=== PATIENT | male | born 1955 | race Caucasian/White ===

== ENCOUNTER 2018-02-17 09:41 | Inpatient (IN) | payer OTHER ==
[2018-02-17 10:50] VITALS: BMI 27.3
--- NOTE | 2018-02-17 13:14 | HP ---
CIWA Score - CIWA Score Nausea/Vomitin Muscle Tremors: 3 Anxiety: 3 Agitation: 3 Paroxysmal Sweats: 2 Orientation: 0-Oriented Tacttile Disturbances: 2-Mild Itch/Numbness/Burn Auditory Disturbances: 2-Mild Harshness/Frighten Visual Disturbances: 1-Very Mild Sensitivity Headache: 2-Mild CIWA-Ar Total Score: 21 Admission ROS BHS - HPI Chief Complaint: I NEED TO STOP DRINKING ALCOHOL Allergies/Adverse Reactions: Allergies Allergy/AdvReac Type Severity Reaction Status Date / Time No Known Allergies Allergy Verified 02/17/18 11:45 History of Present Illness: THIS 62 YEARS OLD MALE WITH ALCOHOL DEPENDENCE,SEEKING DETOX,WITHDRAWAL SYMPTOM, LAST DETOX 2016 [facility] SEIZURE 02/09 [facility]OPE HEPATITIS TREATED NICOTINE DEPENDENCE BIPOLAR,PTSD LONGEST PERIOD SOBRIETY 3 YEARS Exam Limitations: No Limitations - Ebola screening Have you traveled outside of the country in the last 21 days: No Have you had contact with anyone from an Ebola affected area: No Have you been sick,other than usual withdrawal symptoms: No Do you have a fever: No - Review of Systems Constitutional: Loss of Appetite, Malaise, Night Sweats, Changes in sleep, Weakness EENT: reports: Nose Congestion Respiratory: reports: No Symptoms reported Cardiac: reports: No Symptoms Reported GI: reports: Diarrhea, Nausea, Vomiting, Indigestion : reports: No Symptoms Reported Musculoskeletal: reports: Back Pain, Muscle Pain Integumentary: reports: Dryness, Other (DEHYDRATION) Neuro: reports: Headache, Tremors Endocrine: reports: No Symptoms Reported Hematology: reports: No Symptoms Reported Psychiatric: reports: No Sypmtoms Reported, Judgement Intact, Mood/Affect Appropiate, Anxious (BIPOLAR DISORDER), Depressed Patient History - Patient Medical History Hx Anemia: No Hx Asthma: No Hx Chronic Obstructive Pulmonary Disease (COPD): No Hx Cancer: No Hx Cardiac Disorders: No Hx Congestive Heart Failure: No Hx Hypertension: No Hx Hypercholesterolemia: No Hx Pacemaker: No HX Cerebrovascular Accident: No Hx Seizures: No Hx Dementia: No Hx Diabetes: No Hx Gastrointestinal Disorders: No Hx Liver Disease: No Hx Genitourinary Disorders: Yes (LFT NEPHRECTOMY FOR CANCER IN 2011 AT [place]) Hx Sexually Transmitted Disorders: No Hx Renal Disease (ESRD): No Hx Thyroid Disease: No Hx Human Immunodeficiency Virus (HIV): No (LAST 12/12 NEGATIVE) Hx Hepatitis C: Yes (TREATED) Hx Depression: Yes (ANXIETY,DEPRESSION) Hx Suicide Attempt: No Hx Bipolar Disorder: Yes Hx Schizophrenia: No Other Medical History: NO SUICIDAL,NO HOMICIDAL - Patient Surgical History Past Surgical History: Yes Hx Neurologic Surgery: No Hx Cataract Extraction: No Hx Cardiac Surgery: No Hx Lung Surgery: No Hx Breast Surgery: No Hx Breast Biopsy: No Hx Abdominal Surgery: No Hx Appendectomy: No Hx Cholecystectomy: No Hx Genitourinary Surgery: No Hx Section: No Hx Orthopedic Surgery: No Other Surgical History: left nephrectomy (ca) in 2011 Anesthesia Reaction: No - PPD History Previous Implant?: Yes Documented Results: Negative w/o proof Implanted On Prior R Admission?: No PPD to be Administered?: Yes - Smoking Cessation Smoking history: Current every day smoker Have you smoked in the past 12 months: Yes Hx Chewing Tobacco Use: No Initiated information on smoking cessation: Yes 'Breaking Loose' booklet given: 02/17/18 - Substance & Tx. History Hx Alcohol Use: Yes Hx Substance Use: No Substance Use Type: Alcohol Hx Substance Use Treatment: Yes (2017 IN [place]) - Substances Abused Alcohol-vodka/beer Route: Oral Frequency: Daily Amount used: 1 qt./1-6 pk. Age of first use: 9 Date of Last Use: 02/17/18 Family Disease History - Family Disease History Family Disease History: Other: Father (ALCOHOL,), Mother (ALCOHOL, ), Brother (ALCOHOL,NOW SOBER) Admission Physical Exam BHS - Vital Signs Vital Signs: Vital Signs - 24 hr 02/17/18 10:44 Temperature 97 F L Pulse Rate 88 Respiratory 20 Rate Blood Pressure 128/53 - Physical General Appearance: Yes: Moderate Distress, Tremorous, Irritable, Sweating, Anxious HEENTM: Yes: Within Normal Limits, Normal ENT Inspection, Normocephalic, WALTER, Pharynx Normal Respiratory: Yes: Lungs Clear, Normal Breath Sounds, No Respiratory Distress Neck: Yes: Within Normal Limits, Supple, Trachea in good position Breast: Yes: Within Normal Limits Cardiology: Yes: Within Normal Limits, Regular Rhythm, Regular Rate, S1, S2 Abdominal: Yes: Normal Bowel Sounds, Non Tender, Flat, Soft, Organomegaly, Surgical Scar (SURGOCAL SCAR LEFT LOWER ABDOMEN) Genitourinary: Yes: Within Normal Limits Back: Yes: Normal Inspection, Muscle Spasm Musculoskeletal: Yes: full range of Motion, Back pain, Muscle Pain Extremities: Yes: Tremors, Other (DEFORMITY OF RIGHT 5TH FINGER) Neurological: Yes: manager of patient II-XII NML intact, Fully Oriented, Alert, Motor Strength 5/5 Integumentary: Yes: Dry Lymphatic: Yes: Within Normal Limits - Diagnostic (1) Alcohol dependence with uncomplicated withdrawal Current Visit: Yes Status: Acute (2) Alcohol dependence with uncomplicated intoxication Current Visit: Yes Status: Acute (3) Alcohol related seizure Current Visit: Yes Status: Acute (4) Syncope Current Visit: Yes Status: Acute (5) Nicotine dependence Current Visit: Yes Status: Acute Qualifiers: Nicotine product type: cigarettes Substance use status: in withdrawal Qualified Code(s): F17.213 - Nicotine dependence, cigarettes, with withdrawal (6) History of nephrectomy, unilateral Current Visit: Yes Status: Chronic (7) Bipolar 1 disorder Current Visit: Yes Status: Acute (8) PTSD (post-traumatic stress disorder) Current Visit: Yes Status: Chronic Comment: As per self-report.On medications. Cleared for Admission [facility] - Detox or Rehab [facility] Level of Care: Medically Managed Detox Regimen/Protocol: Librium [facility] Breath Alcohol Content Breath Alcohol Content: 0.214 Urine Drug Screen - Results Drug Screen Negative: Yes
[2018-02-17] MEDS ORDERED: MAGNESIUM HYDROX 2400MG/30ML ORAL SUSPENSION 30 ML CUP PO PRN (13:28)
[2018-02-17] MEDS ORDERED: IBUPROFEN 400 MG TABLET (FP) PO PRN (13:28)
[2018-02-17] MEDS ORDERED: hydrOXYzine PAMOATE 50 MG CAPSULE (FP) PO PRN (13:28)
[2018-02-17] MEDS ORDERED: chlordiazePOXIDE HCL 25 MG CAPSULE PO PRN (13:28)
[2018-02-17] MEDS ORDERED: MAG HYDROX/AL HYDROX/SIMETH 30 ML UNIT-DOSE CUP PO PRN (13:28)
[2018-02-17] MEDS ORDERED: P-EPHED 60MG/TRIPROLIDI 2.5MG TABLET PO PRN (13:28)
[2018-02-17] MEDS ORDERED: MENTHOL/PHENOL 1 EACH UD MM PRN (13:28)
[2018-02-17] MEDS ORDERED: ACETAMINOPHEN 325 MG TABLET (FP) PO PRN (13:28)
[2018-02-17] MEDS ORDERED: MAGNESIUM CITRATE 300 ML BOTTLE PO PRN (13:28)
[2018-02-17] MEDS ORDERED: guaiFENesin/D-METHORPHAN HB 10 ML UNIT-DOSE CUPS PO PRN (13:28)
[2018-02-17] MEDS ORDERED: LOPERAMIDE HCL 2 MG CAPSULE PO PRN (13:28)
[2018-02-17] MEDS ORDERED: chlordiazePOXIDE HCL 25 MG CAPSULE PO ONE (14:15)
--- NOTE | 2018-02-17 16:39 | CONSULT ---
[facility] Psychiatric Consult - Data Date of interview: 02/17/18 Admission source: [facility] Identifying data: First admission to [facility] for this 63 y/o male from [place] ancestry seeking detox treatrment on for alcohol dependence.Patient is single without children,domiciled,currently unemployed and supported on SSI benefits. Substance Abuse History: Smoking history: Current every day smoker. Have you smoked in the past 12 months: Yes. Hx Chewing Tobacco Use: No. Initiated information on smoking cessation: Yes. 'Breaking Loose' booklet given: . - Substance & Tx. History. Hx Alcohol Use: Yes. Hx Substance Use: No. Substance Use Type: Alcohol. Hx Substance Use Treatment: Yes (2017 IN [place]). - Substances Abused. Alcohol-vodka/beer. Route: Oral. Frequency : Daily. Amount used: 1 qt./1-6 pk. Age of first use: 9. Date of Last Use: 02/17/18 Medical History: Antecedent of hepatitis C (treated) and left nephrectomy ( cancer),withdrawal-related seizures and a history of syncope. Psychiatric History: Prescribed seroquel 200 mg/hs + zoloft 200 mg/day + buspar 30 mg/day.No reported history of psychiatric hospitalizations but OPD care at the [facility] in [place] (self-report) until patient dropped out two months ago.Mr Vazquez endorses the diagnoses of Bipolar Disorder and PTSD.Denies history of suicide attempts. Physical/Sexual Abuse/Trauma History: Patient denies history of abuse.No history. Additional Comment: Drug Screen is negative. Mental Status Exam - Mental Status Exam Alert and Oriented to: Time, Place, Person Cognitive Function: Good Patient Appearance: Well Groomed (flushed facial features) Mood: Apprehensive (mildly), Hopeful (jovial mood) Affect: Appropriate, Normal Range Patient Behavior: Fatigued, Appropriate (friendly), Cooperative Speech Pattern: Clear, Appropriate Voice Loudness: Normal Thought Process: Intact, Goal Oriented Thought Disorder: Not Present Hallucinations: Denies Suicidal Ideation: Denies Homicidal Ideation: Denies Insight/Judgement: Poor Sleep: Poorly, Difficulty falling asleep Appetite: Good Muscle strength/Tone: Normal Gait/Station: Normal Psychiatric Findings - Problem List ([place] 1, 2,3) (1) Alcohol dependence with uncomplicated withdrawal Current Visit: Yes Status: Acute (2) Nicotine dependence Current Visit: Yes Status: Acute Qualifiers: Nicotine product type: cigarettes Substance use status: in withdrawal Qualified Code(s): F17.213 - Nicotine dependence, cigarettes, with withdrawal (3) Bipolar disorder Current Visit: Yes Status: Chronic Comment: As per self-report.On medications. (4) PTSD (post-traumatic stress disorder) Current Visit: Yes Status: Chronic Comment: As per self-report.On medications. (5) Insomnia Current Visit: Yes Status: Acute - Initial Treatment Plan Initial Treatment Plan: Psychoeducation.Orientation to the unit.Support.Detoxification in progress.Medications : zoloft 100 mg po daily + seroquel 100 mg po hs (reduced as a precaution against oversedation) + buspar 15 mg po bid.Side effects/benefits of these medications are discussed with the patient.Mr Vazquez has expressed his agrement to this plan of care.Observation. Medications are confirmed by pharmacy claims of 02/08/18 @ [facility].NO scripts needed at discharge (patient indicates that he has adequate supply of medications at home).
[2018-02-17 16:49] LABS: URINE APPEARANCE CLEAR; URINE BILIRUBIN NEGATIVE (<2.0 mg/dL); URINE BLOOD NEGATIVE (NEGATIVE); URINE COLOR DKYELLOW; URINE GLUCOSE (UA) NEGATIVE (NEGATIVE); URINE KETONE NEGATIVE (NEGATIVE); URINE LEUK ESTERASE NEGATIVE (NEGATIVE); URINE NITRITE NEGATIVE (NEGATIVE); URINE PROTEIN NEGATIVE (NEGATIVE); URINE UROBILINOGEN 4.0 E.U/dl mg/dL (0.2-1.0)
[2018-02-17] MEDS: chlordiazePOXIDE HCL 25 MG CAPSULE PO SCH ×2 (17:16→22:17)
[2018-02-17] MEDS: QUEtiapine FUMARATE 100 MG TABLET (FP) PO SCH (22:17)
[2018-02-17] MEDS: MELATONIN 5 MG TABLETS PO SCH (22:17)
[2018-02-17] MEDS: THIAMINE HCL 100 MG TABLET (FP) PO SCH (22:17)
[2018-02-18] MEDS: chlordiazePOXIDE HCL 25 MG CAPSULE PO SCH ×4 (06:18→22:13)
[2018-02-18 09:59] LABS: HEMATOCRIT 45.7 % (35.4-49); HEMOGLOBIN 15.3 GM/dL (11.7-16.9); MCHC 33.4 g/dl (32.0-35.9); MEAN CELL VOLUME 92.8 fl (80-96); MEAN PLT VOLUME 9.7 fl (7.5-11.1); PLATELET COUNT 193 K/MM3 (134-434); RBC 4.92 M/mm3 (4.00-5.60); RDW 16.7 % (11.9-15.9); WHITE BLOOD COUNT 6.3 K/mm3 (4.0-10.0)
[2018-02-18 10:23] LABS: CHLORIDE 110 mmol/L (98-107); POTASSIUM 4.2 mmol/L (3.5-5.1); SODIUM 143 mmol/L (136-145)
[2018-02-18] MEDS: PRENATAL VITAMINS W/ FOLIC ACID TABLET (FP) PO SCH (10:39)
[2018-02-18] MEDS: SERTRALINE HCL 50 MG TABLET (FP) PO SCH (10:39)
[2018-02-18 10:40] LABS: ALBUMIN 4.4 g/dl (3.4-5.0); ALK PHOS 116 U/L (45-117); ANION GAP 12 (8-16); BILIRUBIN,TOTAL 0.3 mg/dL (0.2-1.0); BLOOD UREA NITROGEN 39 mg/dL (7-18); CO2 21 mmol/L (21-32); CREATININE 1.7 mg/dL (0.7-1.3); GLUCOSE,RANDOM 70 mg/dL (74-106); SGOT/AST 28 U/L (15-37); SGPT/ALT 26 U/L (12-78); TOT PROT 7.7 g/dl (6.4-8.2)
--- NOTE | 2018-02-18 10:54 | PN ---
[facility] CIWA - CIWA Score Nausea/Vomitin-No Nausea/No Vomiting Muscle Tremors: 4-Moderate,w/Arms Extend Anxiety: 4-Mod. Anxious/Guarded Agitation: 4-Moderately Restless Paroxysmal Sweats: 1-Minimal Palms Moist Orientation: 0-Oriented Tacttile Disturbances: 0-None Auditory Disturbances: 0-None Visual Disturbances: 0-None Headache: 0-None Present CIWA-Ar Total Score: 13 S Progress Note (SOAP) Subjective: ANXIETY,SWEATS,TREMORS,FATIGUE. Objective: 02/18/18 10:53 Vital Signs Temperature 95.7 F L 02/18/18 09:27 Pulse Rate 66 02/18/18 09:27 Respiratory Rate 18 02/18/18 09:27 Blood Pressure 117/76 02/18/18 09:27 O2 Sat by Pulse Oximetry (%) Laboratory Last Values WBC 6.3 K/mm3 (4.0-10.0) 02/18/18 05:50 RBC 4.92 M/mm3 (4.00-5.60) 02/18/18 05:50 Hgb 15.3 GM/dL (11.7-16.9) 02/18/18 05:50 Hct 45.7 % (35.4-49) 02/18/18 05:50 MCV 92.8 fl (80-96) 02/18/18 05:50 MCH 31.0 pg (25.7-33.7) 02/18/18 05:50 MCHC 33.4 g/dl (32.0-35.9) 02/18/18 05:50 RDW 16.7 % (11.9-15.9) H 02/18/18 05:50 Plt Count 193 K/MM3 (134-434) 02/18/18 05:50 MPV 9.7 fl (7.5-11.1) 02/18/18 05:50 Urine Color Dkyellow 02/17/18 15:20 Urine Appearance Clear 02/17/18 15:20 Urine pH 6.0 (5.0-8.0) 02/17/18 15:20 Ur Specific [place] 1.020 (1.001-1.035) 02/17/18 15:20 Urine Protein Negative (NEGATIVE) 02/17/18 15:20 Urine Glucose (UA) Negative (NEGATIVE) 02/17/18 15:20 Urine Ketones Negative (NEGATIVE) 02/17/18 15:20 Urine Blood Negative (NEGATIVE) 02/17/18 15:20 Urine Nitrite Negative (NEGATIVE) 02/17/18 15:20 Urine Bilirubin Negative (<2.0 mg/dL) 02/17/18 15:20 Urine Urobilinogen 4.0 e.u/dl mg/dL (0.2-1.0) 02/17/18 15:20 Ur Leukocyte Esterase Negative (NEGATIVE) 02/17/18 15:20 OTHER LABS PENDING Assessment: 02/18/18 10:53 WITHDRAWAL SX Plan: CONTINUE DETOX
--- NOTE | 2018-02-18 16:51 | EKG ---
Test Reason : Blood Pressure : / mmHG Vent. Rate : 089 BPM Atrial Rate : 089 BPM P-R Int : 168 ms QRS Dur : 080 ms QT Int : 364 ms P-R-T Axes : 066 041 065 degrees QTc Int : 442 ms NORMAL SINUS RHYTHM NORMAL ECG NO PREVIOUS ECGS AVAILABLE Confirmed by MD Luis Enrique, Joce ([id number]) on 02/18/2018 4:50:47 PM Referred By: Confirmed By:Joce Dudley MD
[2018-02-18] MEDS: THIAMINE HCL 100 MG TABLET (FP) PO SCH (22:13)
[2018-02-18] MEDS: MELATONIN 5 MG TABLETS PO SCH (22:13)
[2018-02-18] MEDS: QUEtiapine FUMARATE 100 MG TABLET (FP) PO SCH (22:13)
[2018-02-19] MEDS: chlordiazePOXIDE HCL 25 MG CAPSULE PO SCH ×2 (05:46→10:24)
[2018-02-19] MEDS: SERTRALINE HCL 50 MG TABLET (FP) PO SCH (10:24)
[2018-02-19] MEDS: PRENATAL VITAMINS W/ FOLIC ACID TABLET (FP) PO SCH (10:24)
--- NOTE | 2018-02-19 11:04 | PN ---
S CIWA - CIWA Score Nausea/Vomitin-No Nausea/No Vomiting Muscle Tremors: 4-Moderate,w/Arms Extend Anxiety: 5 Agitation: 2 Paroxysmal Sweats: 1-Minimal Palms Moist Orientation: 0-Oriented Tacttile Disturbances: 0-None Auditory Disturbances: 0-None Visual Disturbances: 0-None Headache: 0-None Present CIWA-Ar Total Score: 12 BHS Progress Note (SOAP) Subjective: ANXIETY,TREMORS,"DIZZY",DECREASED APPETITE. Objective: 02/19/18 11:03 Vital Signs Temperature 98.2 F 02/19/18 09:20 Pulse Rate 67 02/19/18 09:20 Respiratory Rate 18 02/19/18 09:20 Blood Pressure 144/89 02/19/18 09:20 O2 Sat by Pulse Oximetry (%) Laboratory Last Values WBC 6.3 K/mm3 (4.0-10.0) 02/18/18 05:50 RBC 4.92 M/mm3 (4.00-5.60) 02/18/18 05:50 Hgb 15.3 GM/dL (11.7-16.9) 02/18/18 05:50 Hct 45.7 % (35.4-49) 02/18/18 05:50 MCV 92.8 fl (80-96) 02/18/18 05:50 MCH 31.0 pg (25.7-33.7) 02/18/18 05:50 MCHC 33.4 g/dl (32.0-35.9) 02/18/18 05:50 RDW 16.7 % (11.9-15.9) H 02/18/18 05:50 Plt Count 193 K/MM3 (134-434) 02/18/18 05:50 MPV 9.7 fl (7.5-11.1) 02/18/18 05:50 Sodium 143 mmol/L (136-145) 02/18/18 05:50 Potassium 4.2 mmol/L (3.5-5.1) 02/18/18 05:50 Chloride 110 mmol/L (98-107) H 02/18/18 05:50 Carbon Dioxide 21 mmol/L (21-32) 02/18/18 05:50 Anion Gap 12 (8-16) 02/18/18 05:50 BUN 39 mg/dL (7-18) H 02/18/18 05:50 Creatinine 1.7 mg/dL (0.7-1.3) H 02/18/18 05:50 Creat Clearance w eGFR 40.78 (>60) 02/18/18 05:50 Random Glucose 70 mg/dL (74-106) L 02/18/18 05:50 Calcium 9.0 mg/dL (8.5-10.1) 02/18/18 05:50 Total Bilirubin 0.3 mg/dL (0.2-1.0) 02/18/18 05:50 AST 28 U/L (15-37) 02/18/18 05:50 ALT 26 U/L (12-78) 02/18/18 05:50 Alkaline Phosphatase 116 U/L (45-117) 02/18/18 05:50 Total Protein 7.7 g/dl (6.4-8.2) 02/18/18 05:50 Albumin 4.4 g/dl (3.4-5.0) 02/18/18 05:50 Urine Color Dkyellow 02/17/18 15:20 Urine Appearance Clear 02/17/18 15:20 Urine pH 6.0 (5.0-8.0) 02/17/18 15:20 Ur Specific [place] 1.020 (1.001-1.035) 02/17/18 15:20 Urine Protein Negative (NEGATIVE) 02/17/18 15:20 Urine Glucose (UA) Negative (NEGATIVE) 02/17/18 15:20 Urine Ketones Negative (NEGATIVE) 02/17/18 15:20 Urine Blood Negative (NEGATIVE) 02/17/18 15:20 Urine Nitrite Negative (NEGATIVE) 02/17/18 15:20 Urine Bilirubin Negative (<2.0 mg/dL) 02/17/18 15:20 Urine Urobilinogen 4.0 e.u/dl mg/dL (0.2-1.0) 02/17/18 15:20 Ur Leukocyte Esterase Negative (NEGATIVE) 02/17/18 15:20 RPR Titer Nonreactive (NONREACTIVE) 02/18/18 05:50 Assessment: 02/19/18 11:03 WITHDRAWAL SX Plan: CONTINUE DETOX INCREASE PO FLUIDS. INSTRUCTED PT TO RISE SLOWLY FROM LYING POSITION.
[2018-02-19] MEDS: chlordiazePOXIDE 5 MG CAPSULE PO SCH ×2 (17:57→22:27)
[2018-02-19] MEDS: QUEtiapine FUMARATE 100 MG TABLET (FP) PO SCH (22:26)
[2018-02-19] MEDS: THIAMINE HCL 100 MG TABLET (FP) PO SCH (22:26)
[2018-02-19] MEDS: MELATONIN 5 MG TABLETS PO SCH (22:27)
[2018-02-20] MEDS: chlordiazePOXIDE 5 MG CAPSULE PO SCH ×2 (05:38→10:43)
[2018-02-20] MEDS: PRENATAL VITAMINS W/ FOLIC ACID TABLET (FP) PO SCH (10:43)
[2018-02-20] MEDS: SERTRALINE HCL 50 MG TABLET (FP) PO SCH (10:43)
[2018-02-20 10:46] LABS: INR 0.85 (0.82-1.09); PROTHROMBIN TIME (PATIENT) 9.6 SEC (9.98-11.88)
[2018-02-20 10:54] LABS: CHLORIDE 105 mmol/L (98-107); SODIUM 138 mmol/L (136-145)
[2018-02-20 11:01] LABS: ANION GAP 6 (8-16); BLOOD UREA NITROGEN 35 mg/dL (7-18); CALCIUM 9.2 mg/dL (8.5-10.1); CO2 27 mmol/L (21-32); CREATININE 1.1 mg/dL (0.7-1.3); GLUCOSE,RANDOM 95 mg/dL (74-106)
--- NOTE | 2018-02-20 11:02 | PN ---
BHS Progress Note (SOAP) Subjective: ANXIETY,SWEATS,SLIGHT TREMORS,FATIGUE. Objective: 02/20/18 11:01 Vital Signs Temperature 96 F L 02/20/18 09:31 Pulse Rate 60 02/20/18 09:31 Respiratory Rate 20 02/20/18 09:31 Blood Pressure 117/65 02/20/18 09:31 O2 Sat by Pulse Oximetry (%) Laboratory Last Values WBC 6.3 K/mm3 (4.0-10.0) 02/18/18 05:50 RBC 4.92 M/mm3 (4.00-5.60) 02/18/18 05:50 Hgb 15.3 GM/dL (11.7-16.9) 02/18/18 05:50 Hct 45.7 % (35.4-49) 02/18/18 05:50 MCV 92.8 fl (80-96) 02/18/18 05:50 MCH 31.0 pg (25.7-33.7) 02/18/18 05:50 MCHC 33.4 g/dl (32.0-35.9) 02/18/18 05:50 RDW 16.7 % (11.9-15.9) H 02/18/18 05:50 Plt Count 193 K/MM3 (134-434) 02/18/18 05:50 MPV 9.7 fl (7.5-11.1) 02/18/18 05:50 Sodium 143 mmol/L (136-145) 02/18/18 05:50 Potassium 4.2 mmol/L (3.5-5.1) 02/18/18 05:50 Chloride 110 mmol/L (98-107) H 02/18/18 05:50 Carbon Dioxide 21 mmol/L (21-32) 02/18/18 05:50 Anion Gap 12 (8-16) 02/18/18 05:50 BUN 39 mg/dL (7-18) H 02/18/18 05:50 Creatinine 1.7 mg/dL (0.7-1.3) H 02/18/18 05:50 Creat Clearance w eGFR 40.78 (>60) 02/18/18 05:50 Random Glucose 70 mg/dL (74-106) L 02/18/18 05:50 Calcium 9.0 mg/dL (8.5-10.1) 02/18/18 05:50 Total Bilirubin 0.3 mg/dL (0.2-1.0) 02/18/18 05:50 AST 28 U/L (15-37) 02/18/18 05:50 ALT 26 U/L (12-78) 02/18/18 05:50 Alkaline Phosphatase 116 U/L (45-117) 02/18/18 05:50 Total Protein 7.7 g/dl (6.4-8.2) 02/18/18 05:50 Albumin 4.4 g/dl (3.4-5.0) 02/18/18 05:50 Urine Color Dkyellow 02/17/18 15:20 Urine Appearance Clear 02/17/18 15:20 Urine pH 6.0 (5.0-8.0) 02/17/18 15:20 Ur Specific [place] 1.020 (1.001-1.035) 02/17/18 15:20 Urine Protein Negative (NEGATIVE) 02/17/18 15:20 Urine Glucose (UA) Negative (NEGATIVE) 02/17/18 15:20 Urine Ketones Negative (NEGATIVE) 02/17/18 15:20 Urine Blood Negative (NEGATIVE) 02/17/18 15:20 Urine Nitrite Negative (NEGATIVE) 02/17/18 15:20 Urine Bilirubin Negative (<2.0 mg/dL) 02/17/18 15:20 Urine Urobilinogen 4.0 e.u/dl mg/dL (0.2-1.0) 02/17/18 15:20 Ur Leukocyte Esterase Negative (NEGATIVE) 02/17/18 15:20 RPR Titer Nonreactive (NONREACTIVE) 02/18/18 05:50 Assessment: 02/20/18 11:01 WITHDRAWAL SX Plan: CONTINUE DETOX
[2018-02-20] MEDS: chlordiazePOXIDE HCL 10 MG CAPSULE PO SCH ×2 (17:11→22:48)
[2018-02-20] MEDS: QUEtiapine FUMARATE 100 MG TABLET (FP) PO SCH (22:48)
[2018-02-20] MEDS: MELATONIN 5 MG TABLETS PO SCH (22:48)
[2018-02-20] MEDS: THIAMINE HCL 100 MG TABLET (FP) PO SCH (22:48)
[2018-02-21] MEDS: chlordiazePOXIDE HCL 10 MG CAPSULE PO SCH (05:48)
[2018-02-21 09:16] VITALS: BP 117/74; PULSE 69; TEMP 96.6
[2018-02-21] MEDS: SERTRALINE HCL 50 MG TABLET (FP) PO SCH (10:42)
[2018-02-21] MEDS: PRENATAL VITAMINS W/ FOLIC ACID TABLET (FP) PO SCH (10:43)
--- NOTE | 2018-02-21 10:58 | DS ---
[facility] Detox Discharge Summary Admission Date: 02/17/18 Discharge Date: 02/21/18 - History Present History: Alcohol Dependence Additional Comments: DETOX COMPLETED. ALERT O X 3. NAD. DECLINED TO GO TO REHAB TODAY Pertinent Past History: SEE DX BELOW - Physical Exam Results Vital Signs: Vital Signs Temperature 96.6 F L 02/21/18 09:14 Pulse Rate 69 02/21/18 09:14 Respiratory Rate 17 02/21/18 09:14 Blood Pressure 117/74 02/21/18 09:14 O2 Sat by Pulse Oximetry (%) Pertinent Admission Physical Exam Findings: WITHDRAWAL SX Laboratory Last Values WBC 6.3 K/mm3 (4.0-10.0) 02/18/18 05:50 RBC 4.92 M/mm3 (4.00-5.60) 02/18/18 05:50 Hgb 15.3 GM/dL (11.7-16.9) 02/18/18 05:50 Hct 45.7 % (35.4-49) 02/18/18 05:50 MCV 92.8 fl (80-96) 02/18/18 05:50 MCH 31.0 pg (25.7-33.7) 02/18/18 05:50 MCHC 33.4 g/dl (32.0-35.9) 02/18/18 05:50 RDW 16.7 % (11.9-15.9) H 02/18/18 05:50 Plt Count 193 K/MM3 (134-434) 02/18/18 05:50 MPV 9.7 fl (7.5-11.1) 02/18/18 05:50 PT with INR 9.60 SEC (9.98-11.88) L 02/20/18 07:00 INR 0.85 (0.82-1.09) L 02/20/18 07:00 Sodium 138 mmol/L (136-145) 02/20/18 07:00 Potassium 4.0 mmol/L (3.5-5.1) 02/20/18 07:00 Chloride 105 mmol/L (98-107) 02/20/18 07:00 Carbon Dioxide 27 mmol/L (21-32) D 02/20/18 07:00 Anion Gap 6 (8-16) L 02/20/18 07:00 BUN 35 mg/dL (7-18) H 02/20/18 07:00 Creatinine 1.1 mg/dL (0.7-1.3) D 02/20/18 07:00 Creat Clearance w eGFR 40.78 (>60) 02/18/18 05:50 Random Glucose 95 mg/dL (74-106) D 02/20/18 07:00 Calcium 9.2 mg/dL (8.5-10.1) 02/20/18 07:00 Total Bilirubin 0.3 mg/dL (0.2-1.0) 02/18/18 05:50 AST 28 U/L (15-37) 02/18/18 05:50 ALT 26 U/L (12-78) 02/18/18 05:50 Alkaline Phosphatase 116 U/L (45-117) 02/18/18 05:50 Total Protein 7.7 g/dl (6.4-8.2) 02/18/18 05:50 Albumin 4.4 g/dl (3.4-5.0) 02/18/18 05:50 Urine Color Dkyellow 02/17/18 15:20 Urine Appearance Clear 02/17/18 15:20 Urine pH 6.0 (5.0-8.0) 02/17/18 15:20 Ur Specific [place] 1.020 (1.001-1.035) 02/17/18 15:20 Urine Protein Negative (NEGATIVE) 02/17/18 15:20 Urine Glucose (UA) Negative (NEGATIVE) 02/17/18 15:20 Urine Ketones Negative (NEGATIVE) 02/17/18 15:20 Urine Blood Negative (NEGATIVE) 02/17/18 15:20 Urine Nitrite Negative (NEGATIVE) 02/17/18 15:20 Urine Bilirubin Negative (<2.0 mg/dL) 02/17/18 15:20 Urine Urobilinogen 4.0 e.u/dl mg/dL (0.2-1.0) 02/17/18 15:20 Ur Leukocyte Esterase Negative (NEGATIVE) 02/17/18 15:20 RPR Titer Nonreactive (NONREACTIVE) 02/18/18 05:50 - Treatment Hospital Course: Detox Protocol Followed, Detoxed Safely, Responded well, Discharged Condition Good - Medication Discharge Medications: Ambulatory Orders Buspirone HCl [Buspar -] 30 mg PO BID 02/17/18 Quetiapine Fumarate [Seroquel -] 200 mg PO HS 02/17/18 Sertraline HCl [Zoloft] 100 mg PO BID 02/17/18 - Diagnosis (1) Alcohol dependence with uncomplicated withdrawal Current Visit: Yes Status: Acute (2) Alcohol related seizure Current Visit: Yes Status: Acute (3) History of nephrectomy, unilateral Current Visit: Yes Status: Chronic (4) Nicotine dependence Current Visit: Yes Status: Acute Qualifiers: Nicotine product type: cigarettes Substance use status: in withdrawal Qualified Code(s): F17.213 - Nicotine dependence, cigarettes, with withdrawal (5) Alcohol dependence with uncomplicated intoxication Current Visit: Yes Status: Acute - AMA Did Patient Leave Against Medical Advice: No
== END 2018-02-21 11:02 | disposition home or self-care (01) | DRG 897 ==
LOC: YASAS 09:41 → Y3N 13:33
PROVIDERS: ADMIT Internal Medicine; ATTEND Internal Medicine
PROC: HZ2ZZZZ Detoxification Services for Substance Abuse Treatment (ICD-10-PCS; principal; 2018-02-17)
DX: F10.230 Alcohol dependence with withdrawal, uncomplicated (principal); G40.509 Epileptic seizures related to external causes, not intractable, without status epilepticus; F17.210 Nicotine dependence, cigarettes, uncomplicated; F31.9 Bipolar disorder, unspecified; F43.10 Post-traumatic stress disorder, unspecified; F41.9 Anxiety disorder, unspecified; G47.00 Insomnia, unspecified; R56.9 Unspecified convulsions; Z85.528 Personal history of other malignant neoplasm of kidney; Z90.5 Acquired absence of kidney
CPT/HCPCS: 36415; 80048; 80053; 81003; 85027; 85610; 86593; 93005; 93010